=== PATIENT | male | born 1965 | race Caucasian/White ===

== ENCOUNTER → 2022-11-29 08:17 | Outpatient (REF) | payer BC, SELFPAY ==
--- NOTE | 2022-11-29 08:42 | CA_ITS ---
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 Normal LV ejection fraction 55-60% with impaired relaxation filling pattern 2. Moderately dilated left atrium 3. Normal cardiac valvular Dopplers 4. Normal RV systolic pressure 5. Upper limits of normal ascending aortic size 6. No gross pericardial effusion Findings Left Ventricle Normal left ventricular size, thickness, and systolic function. The visually estimated ejection fraction is between 55-60%. Spectral Doppler is indicative of an impaired relaxation filling pattern. E/E prime ratio is <8, consistent with normal filling pressures. Evidence suggests grade I (mild) diastolic dysfunction. Peak GLS is -17.5%, low limits of normal. Right Ventricle Normal right ventricular cavity size and systolic function. Atria The left atrium is moderately dilated. The atrial septum has a dumbell appearance. Interatrial shunt cannot be excluded. The right atrium is normal in size. Aortic Valve Normal aortic valve structure and function. There is no aortic valve stenosis. There is no aortic valve regurgitation. Mitral Valve Normal mitral valve structure and function. There is trace mitral valve regurgitation. There is no mitral valve stenosis. Tricuspid Valve Normal tricuspid valve structure. There is trace tricuspid valve regurgitation. The right ventricular systolic pressure is normal. The right ventricular systolic pressure is 11 mmHg. Normal right atrial pressure. There is no evidence of pulmonary hypertension. Great Vessels The pulmonary artery was not well visualized. Venous The inferior vena cava is normal in size and collapses greater than 50% with inspiration. Pericardium/Pleural There is no evidence of pericardial effusion. Prior Study Comparison No prior study available for comparison. Measurements 2D Linear Measurements IVSd: 1.01 0.6-0.9/0.6-1.0 cm LVIDd: 6.07 3.9-5.3/4.2-5.9 cm LVIDd Index: 3.15 2.4-3.2/2.2-3.1 cm/m2 LVIDs: 3.83 2.0-3.6 cm LVPWd: 0.99 0.7-1.1 cm LA Diam: 4.60 2.7-3.8/3.0-4.0 cm LAIDs Index: 2.38 1.5-2.3 cm/m2 LV Mass: 314.39 67-162/88-224 g LV Mass Index: 162.90 43-95/49-115 g/m2 LVOT Diam: 2.10 3.0+(-)1.3 cm 2D Systolic Function EF 4C: 56.20 >55% EF 2C: 62.90 >55% EF BiP: 57.80 >55% Mitral Valve MV Pk E: 0.52 MV PK A: 0.57 MV Decel Time: 288.00 E/A: 0.90 E'Lateral: 10.10 E'Medial: 7.29 E/E' Med: 7.20 E/E' Lat: 5.20 PHT: 84.00 MVA PHT: 2.62 Decel Greene: 1.82 Aortic Valve AoV Pk Chito: 1.30 AoV Mn Chito: 0.95 AoV VTI: 0.28 AoV Pk Grad: 7.00 Aov Mn Grad: 4.00 AUGUSTINE Cont.VTI: 2.75 LVOT LVOT Pk Chito: 0.97 LVOT Mn Chito: 0.74 LVOT VTI: 0.22 LVOT Pk Grad: 4.00 LVOT Mn Grad: 2.00 LVOT Diam: 2.10 LVOT Area: 3.46 Diastolic Function MV Pk E: 0.52 MV Pk A: 0.57 E/A: 0.90 E'Medial: 7.29 E/E' Med: 7.20 E' Laterial: 10.10 E/E' Lat: 5.20 Right Ventricle TAPSE (mm): 20.70 TVS' Chito: 15.90 Tricuspid Valve TR Pk Chito: 1.38 TR Pk Grad: 8.00 RA Press: 3.00 RVSP: 11.00 Great Vessels Aorta Sinus of Valsalva: 3.91 2.0-3.[address] [place]: 2.74 1.7-3.4 cm Ao Asc: 3.50 2.1-3.4 cm Updated in Other Vendor System with Status of Final Andrew Jernigan MD electronically signed on 11/29/2022 1:09:35 PM with status of Final
== END ==
LOC: HO.CARD 08:17
PROVIDERS: PCP Hospitalist; Visit Provider Internal Medicine
DX: I44.4 Left anterior fascicular block (principal)
CPT/HCPCS: 93306; 93356

== ENCOUNTER → 2022-11-29 08:42 | Outpatient (BNV) | payer BC, SELFPAY | PROVIDERS: PCP Hospitalist; Visit Provider Internal Medicine Cardiovascular Disease | DX: R94.31 Abnormal electrocardiogram [ECG] [EKG] (principal) | CPT/HCPCS: 93306 ==

== ENCOUNTER 2022-12-02 07:40 | Outpatient (AMB) | payer BC, SELFPAY ==
[2022-12-02 08:09] VITALS: BP 130/70; PULSE 62; BMI 35.9
--- NOTE | 2022-12-02 08:09 | A.OFFVIS_ITS ---
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 Recently was sent for a physical exam and was noted to have abnormal EKG with left anterior fascicular block. He subsequently underwent echocardiogram which showed normal LV systolic function and moderately dilated left atrium with normal cardiac valvular Dopplers. He said he is in excellent shape. He mountain bikes for 4 hours, 2230 miles at a time. He also does heavy weightlifting. He has no cardiovascular symptoms. Denies any exertional chest pain or shortness of breath. Denies any orthopnea, PND, leg edema. Denies any daytime somnolence and snoring at nighttime or morning headaches. He said he has full energy. He has no strong family history for premature coronary artery disease or sudden cardiac that. Review of Systems Const Reports no additional complaints Eyes Reports no additional complaints ENT Reports dizziness Card Denies chest pain, Denies chest pain at rest, Denies chest pain with activity, Denies rapid heart rate, Denies pedal edema, Denies edema, Denies leg edema, Denies lightheadedness, Denies palpitations, Denies dyspnea, Denies dyspnea on exertion and Denies orthopnea Resp Denies cough, Denies dyspnea and Denies dyspnea on exertion GI Denies hematochezia and Denies change in stool character Musc Denies abnormal gait, Reports limited range of motion, Reports muscle cramps, Denies muscle weakness, Denies numbness, Denies radiating pain into limb, Denies stiffness and Denies tingling Neuro Denies abnormal gait, Reports dizziness, Denies numbness and Denies tingling Endo Denies palpitations Physical Exam Vital Signs: Last Vital Signs Pulse 62 12/02/22 08:09 BP 130/70 12/02/22 08:09 BMI result Body Mass Index 35.9 Const General: cooperative, comfortable, no acute distress, well developed, alert, awake, Physically active, well groomed and other (Muscular) Nutritional Appearance: well nourished Orientation/consciousness: patient oriented x3 Limitations: no limitations HEENT Head: Yes normocephalic and Yes atraumatic Neck Neck: Yes trachea midline, Yes supple and Yes no JVD Resp Effort & Inspection: normal respiratory effort Auscultation: clear to auscultation bilaterally Cardio Jugular venous distension: no JVD Palpation: normal PMI Rate: regular rate Rhythm: regular rhythm Heart sounds: S1 normal heart sound present, S2 normal heart sound present, no click, no gallops, no murmurs and no rubs GI Auscultation: normal bowel sounds Skin General skin exam: no rashes or lesions noted Neuro General: patient oriented x3 and no focal motor deficits Extrem General: Yes no clubbing, cyanosis or edema Office Procedures EKG Details: EKG shows normal sinus rhythm with left anterior fascicular block with voltage criteria for LVH 21490-[id number], Complete Assessment & Plan Assessment & Plan (1) Abnormal ECG: Code(s): R94.31 - Abnormal electrocardiogram [ECG] [EKG] Plan: Patient with left anterior fascicular block on the EKG with normal LV systolic function. He has no cardiovascular symptoms at extremely high workload. Currently requires no further workup from cardiac perspective. He is optimized to undergo training for his current job that requires him to be a commander [employer]. Left anterior fascicular block appears to be unexplained and has benign prognosis overall. Would recommend annual EKG with his primary care physician. His left atrial enlargement most likely is reflected by high volume aerobic exercise that he performs on a regular basis. I do not think this is pathologic in nature. He has no other obvious symptoms. Advised to monitor blood pressure intermittently at home and through primary care physician's office. Advised to participate in heart healthy lifestyle. Consider further screening with lipid panel through primary care physician's office. Will follow up in the clinic if need be. Thank you for allowing me to partake in his care Coding Level of Care Code New Pt Level 4 (86873) Diagnoses Abnormal ECG R94.31 CPT Codes EKG - CPT: 98805-[id number], Complete ([id number])
== END 2022-12-02 08:31 | disposition home or self-care (01) ==
PROVIDERS: PCP Hospitalist; Visit Provider Internal Medicine Cardiovascular Disease
DX: R94.31 Abnormal electrocardiogram [ECG] [EKG] (principal); I44.4 Left anterior fascicular block
CPT/HCPCS: 93010; 99204

== ENCOUNTER → 2022-12-02 07:40 | Outpatient (BNVA) | payer BC, SELFPAY | PROVIDERS: PCP Hospitalist; Visit Provider Internal Medicine Cardiovascular Disease | DX: Z02.1 Encounter for pre-employment examination (principal); R94.31 Abnormal electrocardiogram [ECG] [EKG] | CPT/HCPCS: 93005 ==